=== PATIENT | female | born 1990 | race Caucasian/White ===

== ENCOUNTER → 2018-04-20 10:00 | Outpatient (CLI) | payer OTHER, SELFPAY | DX: Z23 Encounter for immunization (principal) | CPT/HCPCS: 90471; 90686 ==

== ENCOUNTER → 2018-11-17 10:40 | Outpatient (CLI) | payer OTHER, SELFPAY ==
--- NOTE | 2018-11-17 10:42 | DI.RAD.S_ITS ---
PROCEDURE: XR FINGER RT MIN 2V INDICATIONS: right 3rd PIP joint swelling and pain TECHNIQUE: AP hand, 2 views of the third finger(s) acquired. COMPARISON: None. FINDINGS: Bones: No fractures or dislocations. No suspicious bony lesions. Soft tissues: No suspicious soft tissue calcifications. IMPRESSION: No radiographic abnormality of the right hand or specifically third proximal interphalangeal joint. Dictated by: Nancy Rojo M.D. on 11/17/2018 at 11:49 Approved by: Nancy Rojo M.D. on 11/17/2018 at 11:49
== END ==
PROVIDERS: Visit Provider Physician Assistant
DX: M79.644 Pain in right finger(s) (principal); M25.441 Effusion, right hand
CPT/HCPCS: 73140

== ENCOUNTER → 2019-06-23 19:59 | Outpatient (CLI) | payer OTHER, SELFPAY | PROVIDERS: Visit Provider Physician Assistant | DX: R30.0 Dysuria (principal) | CPT/HCPCS: 87086 ==

== ENCOUNTER → 2019-08-22 15:04 | Outpatient (CLI) | payer OTHER, SELFPAY ==
--- NOTE | 2019-08-22 15:06 | DI.RAD.S_ITS ---
PROCEDURE: XR HAND LT MIN 3V INDICATIONS: l hand pain TECHNIQUE: 3 views of the hand(s) acquired. COMPARISON: None. FINDINGS: Bones: No fractures or dislocations. Carpal bones are normally aligned. No suspicious bony lesions. Soft tissues: No suspicious soft tissue calcifications. IMPRESSION: No trauma found. Dictated by: Betito Abdi M.D. on 08/22/2019 at 15:50 Approved by: Betito Abdi M.D. on 08/22/2019 at 15:50
--- NOTE | 2019-08-22 15:06 | DI.RAD.S_ITS ---
PROCEDURE: XR ELBOW LT MIN 3V INDICATIONS: l elbow pain TECHNIQUE: 3 views of the elbow were acquired. COMPARISON: None. FINDINGS: Bones: No fractures or dislocations. No suspicious bony lesions. Soft tissues: No elbow joint effusion. No suspicious soft tissue calcifications. IMPRESSION: No trauma. Source of elbow pain not found Dictated by: Betito Abdi M.D. on 08/22/2019 at 15:51 Approved by: Betito Abdi M.D. on 08/22/2019 at 15:51
--- NOTE | 2019-08-22 15:06 | DI.RAD.S_ITS ---
PROCEDURE: XR WRIST LT MIN 3V INDICATIONS: l wrist pain TECHNIQUE: 4 views of the wrist were acquired. COMPARISON: None. FINDINGS: Bones: No fractures or dislocations. No suspicious bony lesions. Scaphoid view: No trauma. Soft tissues: No suspicious soft tissue calcifications. IMPRESSION: No trauma found. Dictated by: Betito Abdi M.D. on 08/22/2019 at 15:50 Approved by: Betito Abdi M.D. on 08/22/2019 at 15:51
== END ==
PROVIDERS: PCP Internal Medicine; Referring Provider Physician Assistant; Visit Provider Physician Assistant
DX: M79.642 Pain in left hand (principal); M25.532 Pain in left wrist; M25.522 Pain in left elbow
CPT/HCPCS: 73080; 73110; 73130

== ENCOUNTER → 2020-01-22 11:28 | Outpatient (CLI) | payer OTHER, SELFPAY ==
--- NOTE | 2020-01-22 | DI.RAD.S_ITS ---
PROCEDURE: XR LUMBAR SPINE 2-3V INDICATIONS: BACK PAIN TECHNIQUE: 2 views of the lumbar spine were acquired. COMPARISON: None. FINDINGS: Bones: 5 [id number] vertebrae are present. There is normal bony alignment. No vertebral body compression fractures. No suspicious bony lesions. Soft tissues: Overlying bowel gas pattern is normal. No suspicious soft tissue calcifications. IMPRESSION: Unremarkable x-ray of the lumbar spine. If clinical symptoms persist, MRI may be helpful. Dictated by: Merrill Ocampo M.D. on 01/22/2020 at 14:21 Approved by: Merrill Ocampo M.D. on 01/22/2020 at 14:24
== END ==
PROVIDERS: PCP Internal Medicine; Referring Provider Internal Medicine; Visit Provider Internal Medicine
DX: M54.5 Low back pain (principal); M54.30 Sciatica, unspecified side
CPT/HCPCS: 72100

== ENCOUNTER 2020-02-21 11:03 | Outpatient (RCR) | payer OTHER, SELFPAY ==
--- NOTE | 2020-09-04 09:29 | PT.OPDS ---
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 Primary Care Provider Referring Provider Specialty: Family Practice Address: [address] [place] [address], [facility], [place], [address] Email: [email or web address] Visit Number Visit Number 1 Discharge Summary PT-OP-B Current Condition Start: 02/21/20 11:18 Freq: Status: Active Protocol: Document 02/21/20 11:15 [facility] (Rec: 02/26/20 13:10 [facility] [id number]) Current Condition History of Current Condition Onset Date withint in the past year History of Current Condition Jacquie is a 29 year old female with worsening compliants of LBP/sacral pain in the past year. 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 She is very active and reports doing lots different kind of exercise. She describes tightness in her low back and at times will experience referred pain down the anterior and posterior legs. PT-OP-C Subjective Start: 02/21/20 11:18 Freq: Status: Active Protocol: Document 02/26/20 13:11 [facility] (Rec: 02/26/20 13:39 [facility] [id number]) OP-PT Pain Assessment Pain Assessment Grid Paper Pain Assessment Grid Completed Yes Location low back and sacral region Pain Location Details low back and sacral region Intensity 4 Scale Used Numeric (0 - 10) Description Radiating,Tightness Radiating Location pain can radiate down the anterior and posterior legs PT-OP-J Posture/Palpation/Skin Start: 02/21/20 11:18 Freq: Status: Active Protocol: Document 02/26/20 13:11 [facility] (Rec: 02/26/20 13:39 [facility] [id number]) Posture Evaluation Position Standing Evaluation View Lateral L-Spine Posture Increased Lordosis Comments Posture Comments Pt stands in a very good upright posture, she does have increased lordosis and tigntness of the lumbar paraspinals PT-OP-K Range of Motion Start: 02/21/20 11:18 Freq: Status: Active Protocol: Document 02/26/20 13:11 [facility] (Rec: 02/26/20 13:39 [facility] [id number]) Lumbar Spine Range of Motion Lumbar Spine Active Comments Able to bend forward from the waist fully but this does bring on c/o tightness into the sacral region and lower back. Hip Goniometric Range of Motion Hip ROM Limitations Comments SLR limited on the Right + for dural tension at 60 degrees PT-OP-L Special Tests Start: 02/21/20 11:18 Freq: Status: Active Protocol: Document 02/26/20 13:11 [facility] (Rec: 02/26/20 13:39 [facility] [id number]) Special Tests Neural Special Tests- Lower Body Other- 1 Comments positive slump test bilaterally but more with the right side, when the neck is flexed there is more dural tension and pain Other Special Tests Special Tests March test in standing for SI stability is negative but with shaking as Jacquie performs it , +ASLR test on the right side PT-OP-M Strength Start: 02/26/20 18:06 Freq: Status: Active Protocol: Document 02/26/20 18:06 [facility] (Rec: 02/26/20 18:06 [facility] [id number]) Hip Strength Hip Manual Muscle Testing Right Abduction 4 Good External Rotation 4 Good PT-OP-T Assessment and Plan Start: 02/21/20 11:18 Freq: Status: Active Protocol: Document 09/04/20 09:28 [facility] (Rec: 09/04/20 09:29 [facility] [id number]) Physical Therapy Assessment Assessment Summary Assessment Jacquie was only seen for her initial evaluation only. She has not followed up with PT and will be discharged at this time. Physical Therapy Plan Discharge Physical Therapy Discharge Reasons No Longer Attending PT
== END 2020-09-19 11:56 ==
LOC: PHYS 11:03
PROVIDERS: PCP Internal Medicine; Referring Provider Internal Medicine; Visit Provider Internal Medicine
DX: M54.5 Low back pain (principal)
CPT/HCPCS: 97110; 97161

== ENCOUNTER → 2020-07-04 07:58 | Outpatient (CLI) | payer OTHER, SELFPAY ==
[2020-07-04] MEDS: COVID-19 VACC(MODERNA-1)/PF 100 MCG/0.5 ML VIAL IM (08:04)
== END ==
PROVIDERS: PCP Internal Medicine; Visit Provider Internal Medicine
DX: Z23 Encounter for immunization (principal)
CPT/HCPCS: 0011A; 91301

== ENCOUNTER → 2020-07-31 16:21 | Outpatient (CLI) | payer OTHER, SELFPAY ==
[2020-07-31] MEDS: COVID-19 VACC #2, MRNA(MOD) 100 MCG/0.5 ML VIAL IM (16:27)
== END ==
PROVIDERS: PCP Internal Medicine; Visit Provider Internal Medicine
DX: Z23 Encounter for immunization (principal)
CPT/HCPCS: 0012A; 91301